=== PATIENT | male | born 1995 | race African-American/Black ===

== ENCOUNTER 2023-08-06 17:18 | Emergency (ER) | payer MEDICAID ==
[~2023-08-06] VITALS: Ht 180.3 cm; Wt 127.0 kg
[2023-08-06 17:30] VITALS: BP 162/86; PULSE 87; RESP 16; TEMP 98.5; O2SAT 98
[2023-08-06] MEDS: METHYLPREDNISOLONE SOD SUCC 125MG/2ML (ACT-O-VIAL) IM STA (20:56)
[2023-08-06] MEDS: KETOROLAC 60MG/2ML VIAL IM STA (20:56)
[2023-08-06] MEDS: PENICILLIN G BENZATHINE 1,200,000 UNITS/2ML SYR IM ONE (20:57)
[2023-08-06] MEDS ORDERED: NAPR500T7 PO (21:10)
[2023-08-06] MEDS ORDERED: AMOX-494 MT (21:10)
== END 2023-08-06 21:20 | disposition home or self-care (01) ==
LOC: ER 17:18
DX: J02.9 Acute pharyngitis, unspecified (principal)
CPT/HCPCS: 99284; 87430; 87070; 96372; J0561; J1885; J2930

== ENCOUNTER 2023-11-02 09:17 | Emergency (ER) | payer MEDICAID, OTHER ==
[~2023-11-02] VITALS: Ht 182.9 cm; Wt 128.0 kg
[~2023-11-02 09:17] MED LIST: AMOX-494 MT; NAPR500T7 PO
[2023-11-02 09:26] VITALS: O2SAT 97
[2023-11-02] MEDS ORDERED: CLINDAMYCIN 600MG PREMIX 50 ML IV ONE (10:15)
[2023-11-02] MEDS: SODIUM CHLORIDE 0.9% 1,000 ML IV ONE ×4 (10:15→12:58)
[2023-11-02] MEDS ORDERED: ACETAMINOPHEN 160MG/5ML UDC PO NR (10:30)
[2023-11-02 10:31] LABS: HEMATOCRIT. 36.8 % (42.0-52.0); HEMOGLOBIN. 11.7 g/dL (14.0-18.0); MEAN CORPUSCULAR HEMOGLOBIN 29.4 pg (28.0-32.0); MEAN CORPUSCULAR HGB CONC 31.9 g/dL (31.0-37.0); MEAN CORPUSCULAR VOLUME 92.4 fL (80.0-94.0); MEAN PLATELET VOLUME 12.1 fl (7.4-10.4); PLATELET 185 x1000/uL (130-400); RED BLOOD CELL COUNT 3.98 mill/uL (4.7-6.1); RED CELL DISTRIBUTION WIDTH 14.8 % (11.6-14.6); WHITE BLOOD COUNT 23.5 x1000/uL (4.5-11.0)
[2023-11-02 10:34] LABS: CHLORIDE 99 mEq/L (98-107); POTASSIUM 3.6 mEq/L (3.5-5.1); SODIUM 132 mEq/L (136-145)
[2023-11-02 10:35] LABS: CARBON DIOXIDE 21 mEq/L (21-32)
[2023-11-02 10:40] LABS: CREATININE 1.2 mg/dL (0.6-1.3); GLUCOSE 109 mg/dL (70-105); UREA NITROGEN BLOOD 6 mg/dL (9-23)
[2023-11-02 10:49] LABS: INR 1.1; PROTHROMBIN TIME 12.3 sec (9.6-11.0)
[2023-11-02 10:52] LABS: DIFFERENTIAL COMMENT 1
[2023-11-02] MEDS: ACETAMINOPHEN 650MG/20.3ML UDC PO NR (11:27)
[2023-11-02] MEDS: KETOROLAC 15MG/ML VIAL IV ONE (11:32)
[2023-11-02] MEDS: CLINDAMYCIN 600MG PREMIX 50 ML IV NR (11:33)
[2023-11-02] MEDS ORDERED: IOHEXOL-300 100 ML BOTTLE ONE (11:47)
[2023-11-02 12:12] LABS: CLARITY URINE CLEAR (CLEAR); COLOR URINE YELLOW (YELLOW); GLUCOSE URINE NEGATIVE (NEGATIVE); KETONES URINE 3+ (NEGATIVE); LEUKOCYTE ESTERASE URINE NEGATIVE (NEGATIVE); NITRITE URINE NEGATIVE (NEGATIVE); OCCULT BLOOD URINE NEGATIVE (NEGATIVE); PH URINE 5.5 (4.5-8.0); PROTEIN URINE 1+ (NEGATIVE); SPECIFIC GRAVITY URINE 1.022 (1.005-1.030)
[2023-11-02 12:14] LABS: PLATELET ESTIMATE NORMAL
[2023-11-02 12:32] LABS: MUCUS URINE TRACE /lpf (NONE/TRACE)
[2023-11-02 12:34] LABS: RBC URINE NONE SEEN /hpf (0-2); WBC URINE 0-2 /hpf (0-2)
[2023-11-02 12:35] LABS: SQUAMOUS EPITHELIAL CELL URINE NONE SEEN /lpf (RARE/1+)
[2023-11-02 12:36] LABS: BACTERIA URINE TRACE
[2023-11-02] MEDS: MORPHINE SULFATE 2 MG/ML INJ (NOT FOR IM USE) IV ONE (17:43)
[2023-11-02] MEDS: CLINDAMYCIN 600MG PREMIX 50 ML IV SCH (18:47)
[2023-11-02 18:59] VITALS: BP 130/74; PULSE 95; RESP 18; TEMP 98
== END 2023-11-02 19:20 | disposition short-term general hospital (02) ==
LOC: ER 09:17
DX: J36 Peritonsillar abscess (principal); Z98.890 Other specified postprocedural states
CPT/HCPCS: 80048; 81003; 87430; 83605; 85025; 85610; 87040; 87086; 36415; 84145; 71045; 70491; 96361; 96365; 96366; 96375; 99285; Q9967; J1885; J2270; J3490; J7030; Z7610 ×4